=== PATIENT | male | born 1955 | race Caucasian/White ===

== ENCOUNTER → 2019-11-09 | Outpatient (CLI) | payer MEDICARE | LOC: GMAL 10:40 | PROVIDERS: ATTEND Family Medicine | DX: E83.42 Hypomagnesemia (principal); I10 Essential (primary) hypertension ==

== ENCOUNTER → 2020-03-31 | Outpatient (CLI) | payer MEDICARE | LOC: GMAL 16:49 | PROVIDERS: ATTEND Family Medicine | DX: Z13.29 Encounter for screening for other suspected endocrine disorder (principal); D51.9 Vitamin B12 deficiency anemia, unspecified; E55.9 Vitamin D deficiency, unspecified; I10 Essential (primary) hypertension ==